=== PATIENT | female | born 1970 | race African-American/Black ===

== ENCOUNTER 2024-09-09 14:50 | Emergency (ER) | payer MEDICAID ==
[~2024-09-09] VITALS: Ht 167.6 cm; Wt 69.0 kg
[~2024-09-09 14:50] MED LIST: ASPIRIN
[2024-09-09 14:54] VITALS: O2SAT 98
[2024-09-09] MEDS ORDERED: MORPHINE SULFATE 2 MG/ML INJ (NOT FOR IM USE) IV ONE (16:15)
[2024-09-09] MEDS: MORPHINE SULFATE 2 MG/ML INJ (NOT FOR IM USE) IV NR (18:22)
[2024-09-09] MEDS ORDERED: IBUP-2029 MT (20:24)
[2024-09-09] MEDS ORDERED: CYCL5TAB3 MT (20:25)
[2024-09-09 20:34] VITALS: BP 112/66; PULSE 99; RESP 18; TEMP 37; O2SAT 98
== END 2024-09-09 20:48 | disposition home or self-care (01) ==
LOC: ER 14:54 → EDBEDREQ 19:28 → ENRESERV 20:11 → CANRESERV 20:29 → ENRESERVTM 20:29 → CANBEDREQ 20:30 → ER 20:48
DX: M54.50 Low back pain, unspecified (principal); M25.551 Pain in right hip; M25.561 Pain in right knee; E78.00 Pure hypercholesterolemia, unspecified; M51.372 Other intervertebral disc degeneration, lumbosacral region with discogenic back pain and lower extremity pain; Z88.0 Allergy status to penicillin; Z79.899 Other long term (current) drug therapy
CPT/HCPCS: 99284; 96374; 73502; 72100; 73560; 73590; J2270